=== PATIENT | male | born 1995 | race Hispanic/Latino ===

== ENCOUNTER 2018-08-25 18:00 | Emergency (ER) | payer SELFPAY ==
[~2018-08-25] VITALS: Ht 175.3 cm; Wt 61.0 kg
[2018-08-25] MEDS ORDERED: CYCLOBENZAPR5 MG PO (18:26)
[2018-08-25] MEDS ORDERED: NAPROSYN500 MG PO (20:34)
[2018-08-25 20:55] VITALS: BP 127/72
== END 2018-08-25 20:55 | disposition home or self-care (01) | DRG 206 ==
LOC: ED 18:00
DX: S23.41XA Sprain of ribs, initial encounter (principal); M54.9 Dorsalgia, unspecified; F17.210 Nicotine dependence, cigarettes, uncomplicated